=== PATIENT | female | born 1965 | race Caucasian/White ===

== ENCOUNTER 2018-04-27 15:25 | Emergency (ER) | payer BC ==
[2018-04-27] MEDS ORDERED: Albuterol/Ipratropium 3.0-0.5 MG/3 ML Neb Soln NEB ONE (15:44)
--- NOTE | 2018-04-27 15:44 | EDM.PDOC ---
ED HPI GENERAL MEDICAL PROBLEM - General Chief Complaint: General Stated Complaint: cough/congestion Time Seen by Provider: 04/27/18 15:30 Source of Information: Reports: Patient History Limitations: Reports: No Limitations - History of Present Illness INITIAL COMMENTS - FREE TEXT/NARRATIVE: 53 YO WF presents to ER complaining of 5 day history of nonproductive cough, nasal congestion, subjective fever and mild shortness of breath. Pt reports she has been having difficulty sleeping and has a mild generalized headache. Pt denies any nausea/vomiting, no chest pain or abdominal pain. Onset Date: 04/22/18 Duration: Day(s): (5) Location: Reports: Generalized Severity: Mild Improves with: Reports: None Worsens with: Reports: None Associated Symptoms: Reports: No Other Symptoms, Cough, Fever/Chills. Denies: Loss of Appetite, Shortness of Breath headache Pain Score (Numeric/FACES): 8 - Related Data Allergies Allergy/AdvReac Type Severity Reaction Status Date / Time No Known Allergies Allergy Verified 04/27/18 15:33 Home Meds: Home Meds Azithromycin [Zithromax] 250 mg PO DAILY #6 tab 04/27/18 [Rx] ED ROS GENERAL - Review of Systems Review Of Systems: See Below Constitutional: Reports: Fever, Chills, Fatigue HEENT: Reports: Throat Pain Respiratory: Reports: Shortness of Breath Cardiovascular: Reports: No Symptoms Endocrine: Reports: No Symptoms GI/Abdominal: Reports: No Symptoms : Reports: No Symptoms Musculoskeletal: Reports: No Symptoms Skin: Reports: No Symptoms Neurological: Reports: No Symptoms Psychiatric: Reports: No Symptoms Hematologic/Lymphatic: Reports: No Symptoms Immunologic: Reports: No Symptoms ED EXAM, GENERAL - Physical Exam Exam: See Below Exam Limited By: No Limitations General Appearance: Alert, WD/WN, No Apparent Distress Ears: Normal External Exam, Normal Canal, Hearing Grossly Normal, Normal TMs Nose: Clear Rhinorrhea Throat/Mouth: Normal Inspection, Normal Lips, Normal Teeth, Normal Gums, Normal Oropharynx, Normal Voice, No Airway Compromise Head: Atraumatic, Normocephalic Neck: Normal Inspection, Supple, Non-Tender, Full Range of Motion, Lymphadenopathy (L), Lymphadenopathy (R) Respiratory/Chest: No Respiratory Distress, Lungs Clear, Normal Breath Sounds, No Accessory Muscle Use, Chest Non-Tender Cardiovascular: Normal Peripheral Pulses, Regular Rate, Rhythm, No Edema, No Gallop, No JVD, No Murmur, No Rub GI/Abdominal: Normal Bowel Sounds, Soft, Non-Tender, No Organomegaly, No Distention, No Abnormal Bruit, No Mass Back Exam: Normal Inspection, Full Range of Motion, NT Extremities: Normal Inspection, Normal Range of Motion, Non-Tender, Normal Capillary Refill, No Pedal Edema Neurological: Alert, Oriented, CN II-XII Intact, Normal Cognition, Normal Gait, Normal Reflexes, No Motor/Sensory Deficits Psychiatric: Normal Affect, Normal Mood Skin Exam: Warm, Dry, Intact, Normal Color, No Rash Course - Vital Signs Last Recorded V/S: Last Vital Signs Temp 37.1 C 04/27/18 15:34 Pulse 91 04/27/18 15:44 Resp 14 04/27/18 15:34 BP 120/76 04/27/18 15:34 Pulse Ox 100 04/27/18 15:44 - Orders/Labs/Meds Orders: Active Orders 24 hr Category Date Time Status RT Aerosol Therapy [RC] ASDIRECTED Care 04/27/18 15:44 Active CULTURE STREP A CONFIRMATION [] Stat Lab 04/27/18 16:00 Results STREP SCRN A RAPID W CULT CONF [] Stat Lab 04/27/18 16:00 Results Labs: strep- neg influenza- neg Meds: Medications Discontinued Medications Generic Name Dose Route Start Last Admin Trade Name Greg PRN Reason Stop Dose Admin Albuterol/Ipratropium 3 ml 04/27/18 15:44 04/27/18 16:16 Duoneb 3.0-0.5 Mg/3 Ml NEB 04/27/18 15:45 3 ml ONETIME ONE Administration - Radiology Interpretation Free Text/Narrative:: CXR- NAD Departure - Departure Time of Disposition: 17:18 Disposition: Home, Self-Care 01 Condition: Good Clinical Impression: Bronchitis - Discharge Information Prescriptions: Azithromycin [Zithromax] 250 mg PO DAILY #6 tab Referrals: Vanessa Kilpatrick MD [Primary Care Provider] - Forms: ED Department Discharge Additional Instructions: 1. discharge home 2. zithromax-Zpac 3. motrin/tylenol as needed 4. return to ER for worsening symptoms 5. follow up in clinic for recheck next 48-72 hours - My Orders Last 24 Hours: My Active Orders 04/27/18 15:44 RT Aerosol Therapy [RC] ASDIRECTED 04/27/18 16:00 CULTURE STREP A CONFIRMATION [RM] Stat STREP SCRN A RAPID W CULT CONF [RM] Stat - Assessment/Plan Last 24 Hours: My Active Orders 04/27/18 15:44 RT Aerosol Therapy [RC] ASDIRECTED 04/27/18 16:00 CULTURE STREP A CONFIRMATION [RM] Stat STREP SCRN A RAPID W CULT CONF [] Stat Assessment:: 1. acute bronchitis Plan: 1. discharge home 2. zithromax-Zpac 3. motrin/tylenol as needed 4. return to ER for worsening symptoms 5. follow up in clinic for recheck next 48-72 hours
--- NOTE | 2018-04-27 16:15 | CR ---
[id number] RAD/RAD Chest PA And Lateral EXAM: RAD Chest PA And Lateral INDICATION: SHORTNESS OF BREATH. COMPARISON: None. DISCUSSION: Cardiomediastinal silhouette is normal in size and contour. No infiltrate, effusion, pneumothorax, or edema. IMPRESSION: Negative examination of the chest. Leon Torres MD 04/27/18 [id number] Thank you for allowing us to participate in the care of your patient.
== END 2018-04-27 17:33 | disposition home or self-care (01) ==
LOC: KA.ED 15:25
DX: J20.9 Acute bronchitis, unspecified (principal)
CPT/HCPCS: 71046; 87081; 87430; 87804; 94640; 99284; J7620-GY

== ENCOUNTER 2020-03-27 16:40 | Emergency (ER) | payer BC ==
--- NOTE | 2020-03-27 16:55 | EDM.PDOC ---
ED HPI GENERAL MEDICAL PROBLEM - General Chief Complaint: General Stated Complaint: FELL AND HIT HER HEAD Time Seen by Provider: 03/27/20 16:55 Source of Information: Reports: Patient - History of Present Illness INITIAL COMMENTS - FREE TEXT/NARRATIVE: Simran, 54-year-old female, when leaving [place] today, walking on a slant slipped on snowy icy surface causing her to fall onto her left hip left elbow and shoulder. She also bumped her head but denies loss of consciousness. She states she heard a pop when this occurred, not certain as to where it came from. She was able to get up and her insisted that she come for evaluation. She has had persisting pain to the lateral left hip as well as elbow and shoulder region with some limited range of motion secondary of her pain. She denies any recent COVID-19 pandemic related concerns or exposures. Onset: Today, Sudden Onset Date: 03/27/20 Onset Time: 16:30 Duration: Minutes: Location: Reports: Pelvis, Upper Extremity, Left Left Shoulder Pain Score (Numeric/FACES): 7 Lower Back Pain Score (Numeric/FACES): 7 - Related Data Allergies Allergy/AdvReac Type Severity Reaction Status Date / Time No Known Allergies Allergy Verified 03/27/20 16:46 Home Meds: Home Meds ALPRAZolam [Alprazolam] 1 mg PO DAILY PRN 03/27/20 [History] Cyclobenzaprine [Flexeril] 10 mg PO TID PRN 03/27/20 [History] DULoxetine [Cymbalta] 120 mg PO DAILY 03/27/20 [History] Gabapentin [Neurontin] 900 mg PO BEDTIME 03/27/20 [History] Hydrocodone/Acetaminophen [Hydrocodone-Acetamin 5-325 mg] 1 each PO PRN 03/27/20 [History] Rosuvastatin [Crestor] 5 mg PO DAILY 03/27/20 [History] Sertraline [Zoloft] 200 mg PO DAILY 03/27/20 [History] glipiZIDE [Glucotrol] 5 mg PO BIDMEALS 03/27/20 [History] lisinopriL [Lisinopril] 20 mg PO DAILY 03/27/20 [History] metFORMIN [Glucophage] 1,000 mg PO BIDMEALS 03/27/20 [History] Past Medical History Gastrointestinal History: Reports: GERD PATIENT ACCESS COORDINATOR History: Reports: , Other (See Below) Other PATIENT ACCESS COORDINATOR History: 1990 Neurological History: Reports: Migraines Psychiatric History: Reports: Anxiety, Depression Endocrine/Metabolic History: Reports: Diabetes, Type II, Obesity/BMI 30+ - Infectious Disease History Infectious Disease History: Reports: Chicken Pox, Measles - Past Surgical History GI Surgical History: Reports: None, Hernia Repair/Other Endocrine Surgical History: Reports: None Neurological Surgical History: Reports: None Social & Family History - Family History Family Medical History: No Pertinent Family History - Caffeine Use Caffeine Use: Reports: Coffee ED ROS GENERAL - Review of Systems Review Of Systems: Comprehensive ROS is negative, except as noted in HPI. ED EXAM, GENERAL - Physical Exam Exam: See Below Free Text/Narrative:: Alert oriented, in no distress. HEENT is negative discharge or deformity. There is no tenderness to palpation. PERRLA with no icterus no injection, EOM intact. Neck is soft supple no lymphadenopathy, no spinal tenderness or radiculopathy noted. There is tenderness to the left shoulder girdle as well as left elbow to palpation. I do not appreciate any crepitus to mild motion. Radial pulses present capillary refill is intact. There is no tenderness to the right shoulder chest wall or upper extremity. Thorax is clear with no wheezes nor crackles. Cardiac is regular Tenderness to the left hip at the greater trochanter region to palpation and slightly changing to motion. She is able to move the distal extremities with no discomfort. Course - Vital Signs Last Recorded V/S: Last Vital Signs Temp 97.1 F 03/27/20 16:40 Pulse 96 03/27/20 16:40 Resp 16 03/27/20 16:40 BP 135/85 03/27/20 16:40 Pulse Ox 96 03/27/20 16:40 - Orders/Labs/Meds Meds: Medications Discontinued Medications Generic Name Dose Route Start Last Admin Trade Name Freq PRN Reason Stop Dose Admin Ketorolac Tromethamine 60 mg 03/27/20 17:20 Toradol IM 03/27/20 17:21 ONETIME ONE - Radiology Interpretation Free Text/Narrative:: No evidence of fracture or dislocation noted on any of the films. Area of the distal humerus consistent with enthesopathy. Which correlates with her area of complaint from her previous epicondylitis and muscular pains. - Re-Assessments/Exams Free Text/Narrative Re-Assessment/Exam: 03/27/20 18:02 Improvement in her pain with the ketorolac injection awaiting readings and discharge. Departure - Departure Time of Disposition: 17:54 Disposition: Home, Self-Care 01 Condition: Good Clinical Impression: Shoulder pain, left, Elbow pain, left, Fall due to ice or snow, Hip pain, left - Discharge Information *PRESCRIPTION DRUG MONITORING PROGRAM REVIEWED*: Not Applicable *COPY OF PRESCRIPTION DRUG MONITORING REPORT IN PATIENT ABILIO: Not Applicable Instructions: How to Use Cold Therapy, [id number], Shoulder Pain, [id number], Joint Pain, [id number] Referrals: Avril Rojas PA-C [Primary Care Provider] - Forms: ED Department Discharge Additional Instructions: You may use heat, or ice to the affected areas to help with the contusion. The next time you are in the clinic to see Avril about your elbow, mention the findings on this x-ray to her. This may be beneficial if you have to see physical therapy for treatment of the elbow. Continue all your medications as directed and limit your activity this evening. Follow-up at the clinic if not improving or if getting worse over the course of the next week. Aches and pains will develop secondary of the fall, but should not come on suddenly or severely. Issues like that should be checked at your convenience. Sepsis Event Note (ED) - Evaluation Sepsis Screening Result: No Definite Risk - Focused Exam Vital Signs: Vital Signs Temp Pulse Resp BP Pulse Ox 03/27/20 16:40 97.1 F 96 16 135/85 96 - Problem List & Annotations (1) Shoulder pain, left SNOMED Code(s): 82183316, 14042451 Code(s): M25.512 - PAIN IN LEFT SHOULDER Status: Acute Priority: High Current Visit: Yes Qualifiers: Chronicity: acute Qualified Code(s): M25.512 - Pain in left shoulder (2) Elbow pain, left SNOMED Code(s): 58423705 Code(s): M25.522 - PAIN IN LEFT ELBOW Status: Acute Priority: High Current Visit: Yes (3) Fall due to ice or snow SNOMED Code(s): 371567814 Code(s): W00.9XXA - UNSPECIFIED FALL DUE TO ICE AND SNOW, INITIAL ENCOUNTER Status: Acute Priority: High Current Visit: Yes Qualifiers: Encounter type: initial encounter Qualified Code(s): W00.9XXA - Unspecified fall due to ice and snow, initial encounter (4) Hip pain, left SNOMED Code(s): 01302744 Code(s): M25.552 - PAIN IN LEFT HIP Status: Acute Priority: High Current Visit: Yes - Problem List Review Problem List Initiated/Reviewed/Updated: Yes - Assessment/Plan Plan: You may use heat, or ice to the affected areas to help with the contusion. The next time you are in the clinic to see Avril about your elbow, mention the findings on this x-ray to her. This may be beneficial if you have to see physical therapy for treatment of the elbow. Continue all your medications as directed and limit your activity this evening. Follow-up at the clinic if not improving or if getting worse over the course of the next week. Aches and pains will develop secondary of the fall, but should not come on suddenly or severely. Issues like that should be checked at your convenience.
[2020-03-27] MEDS: Ketorolac 60 MG/2 ML SDV IM ONE (17:26)
--- NOTE | 2020-03-27 17:35 | CR ---
[id number] RAD/RAD Shoulder Left 2V Min Exam: RAD Shoulder Left 2V Min Indication:FALL WITH PAIN. Comparison: No prior imaging for comparison. Discussion/Impression: No acute fracture or dislocation. Glenohumeral osteoarthritis. Leon Torres MD 03/27/20 [id number] Thank you for allowing us to participate in the care of your patient.
--- NOTE | 2020-03-27 17:36 | CR ---
[id number] RAD/RAD Elbow Left 2V Exam: RAD Elbow Left 2V Indication:FALL, PAIN. Comparison: No prior imaging for comparison. Discussion/Impression: Elbow joint effusion. No visible fracture. Elbow joint effusions can be seen with radiographically occult supracondylar humerus fractures. Bones remain in normal alignment. Joint spaces are well-preserved. 9 mm bony exostosis arising from the cortex of the distal humeral metaphysis along its ulnar aspect. Finding is nonspecific but commonly seen as enthesopathy. No suspicious radiographic features. Leon Trores MD 03/27/20 [id number] Thank you for allowing us to participate in the care of your patient.
--- NOTE | 2020-03-27 17:37 | CR ---
[id number] RAD/RAD Pelvis W Left Lateral Hip Exam: RAD Pelvis W Left Lateral Hip Indication:FALL WITH PAIN TO MOTION/PALPATION. Comparison: No prior imaging for comparison. Discussion/Impression: Bones in normal alignment. No fracture, AVN, or erosive changes. Bilateral os acetabula. Joint spaces are well-preserved. Bone mineralization is normal. Leon Torres MD 03/27/20 [id number] Thank you for allowing us to participate in the care of your patient.
== END 2020-03-27 18:00 | disposition home or self-care (01) ==
LOC: KA.ED 16:40
DX: M25.512 Pain in left shoulder (principal); M25.522 Pain in left elbow; M25.552 Pain in left hip; F41.9 Anxiety disorder, unspecified; F32.9 Major depressive disorder, single episode, unspecified; E11.9 Type 2 diabetes mellitus without complications; G43.909 Migraine, unspecified, not intractable, without status migrainosus; E66.9 Obesity, unspecified; Z68.41 Body mass index [BMI] 40.0-44.9, adult; Z79.899 Other long term (current) drug therapy; W00.0XXA Fall on same level due to ice and snow, initial encounter; Y93.01 Activity, walking, marching and hiking
CPT/HCPCS: 73030-LT; 73070-LT; 96372; 99283; 99283-25; J1885

== ENCOUNTER 2022-09-25 16:29 | Emergency (ER) | payer MEDICAID ==
[2022-09-25 16:35] VITALS: BP 112/71; PULSE 80
== END 2022-09-25 17:10 | disposition home or self-care (01) ==
LOC: KA.ED 16:29
DX: G54.0 Brachial plexus disorders (principal); E78.00 Pure hypercholesterolemia, unspecified; I10 Essential (primary) hypertension; E11.9 Type 2 diabetes mellitus without complications; E66.9 Obesity, unspecified; Z68.25 Body mass index [BMI] 25.0-25.9, adult; Z79.899 Other long term (current) drug therapy; Z98.890 Other specified postprocedural states
CPT/HCPCS: 71045; 99283; 99284

== ENCOUNTER 2023-02-16 11:16 | Emergency (ER) | payer MEDICAID ==
[2023-02-16] MEDS ORDERED: Sodium Chloride 0.9% 1,000 ML IV ONE (11:27)
[2023-02-16] MEDS ORDERED: Ketorolac 30 MG/ML SDV IVPUSH ONE (11:27)
[2023-02-16] MEDS ORDERED: diphenhydrAMINE 50 MG/ML SDV IVPUSH ONE (11:28)
[2023-02-16] MEDS ORDERED: Ondansetron 4 MG/2 ML SDV IVPUSH ONE (11:30)
== END 2023-02-16 12:50 | disposition home or self-care (01) ==
LOC: KA.ED 11:16
DX: G44.209 Tension-type headache, unspecified, not intractable (principal); I10 Essential (primary) hypertension; K21.9 Gastro-esophageal reflux disease without esophagitis; E78.00 Pure hypercholesterolemia, unspecified; E11.9 Type 2 diabetes mellitus without complications; E66.9 Obesity, unspecified; Z79.899 Other long term (current) drug therapy
CPT/HCPCS: 96361; 96374; 96375; 99283-25; 99284; J1200; J1885; J2405; J7030

== ENCOUNTER 2023-03-16 17:35 | Emergency (ER) | payer MEDICAID, OTHER ==
[2023-03-16] MEDS ORDERED: Acetaminophen 500 MG Tab PO ONE (18:34)
== END 2023-03-16 19:35 | disposition home or self-care (01) ==
LOC: KA.ED 17:35
DX: S00.83XA Contusion of other part of head, initial encounter (principal); S80.02XA Contusion of left knee, initial encounter; S09.90XA Unspecified injury of head, initial encounter; E11.9 Type 2 diabetes mellitus without complications; E66.9 Obesity, unspecified; E78.00 Pure hypercholesterolemia, unspecified; I10 Essential (primary) hypertension; W18.30XA Fall on same level, unspecified, initial encounter
CPT/HCPCS: 70450; 73562-LT; 99284; A9270-GY

== ENCOUNTER 2023-05-12 07:59 | Day surgery (SDC) | payer BC, OTHER ==
[2023-05-12] MEDS ORDERED: Sodium Chloride 0.9% 10 ML Syringe FLUSH PRN (08:00)
[2023-05-12] MEDS ORDERED: Bupivacaine 0.5% 30 ML SDV ONE (08:42)
[2023-05-12] MEDS ORDERED: Bacitracin/Neomycin/Polymyxin B Oint 0.9 GM U/D Packet ONE (08:42)
[2023-05-12] MEDS: Lactated Ringers 1,000 ML IV SCH (08:46)
[2023-05-12] MEDS ORDERED: Lidocaine 0.5% 50 ML SDV ONE (08:57)
[2023-05-12] MEDS ORDERED: Midazolam 1 MG/ML 2 ML SDV ONE (08:57)
[2023-05-12] MEDS ORDERED: Propofol 200 MG/20 ML SDV ONE (08:57)
[2023-05-12] MEDS: Bacitracin/Neomycin/Polymyxin B Oint 0.9 GM U/D Packet TOP ONE (09:19)
[2023-05-12] MEDS: Bupivacaine 0.5% 30 ML SDV INFILT ONE (09:19)
== END 2023-05-12 12:00 | disposition home or self-care (01) ==
LOC: KA.SDS 07:59
PROVIDERS: ATTEND Surgery
DX: G56.01 Carpal tunnel syndrome, right upper limb (principal); F32.A Depression, unspecified; F41.9 Anxiety disorder, unspecified; G43.909 Migraine, unspecified, not intractable, without status migrainosus; Z79.899 Other long term (current) drug therapy
CPT/HCPCS: 01810; J0665; J2250; J2704; J3490; J7120

== ENCOUNTER 2024-02-13 09:34 | Emergency (ER) | payer BC ==
[2024-02-13 09:57] LABS: BASOPHILS ABSOLUTE AUTO 0.01 10^3/uL (0.00-0.10); BASOPHILS PERCENT AUTO 0.2 % (0.0-1.0); EOSINOPHILS ABSOLUTE AUTO 0.25 10^3/uL (0.10-0.30); EOSINOPHILS PERCENT AUTO 4.3 % (1.0-3.0); HEMATOCRIT 34.5 % (37.0-47.0); HEMOGLOBIN 11.3 g/dL (12.0-16.0); LYMPHOCYTES PERCENT AUTO 22.5 % (20.0-40.0); MEAN CORPUSCULAR HGB CONC 32.8 g/dL (32.0-36.0); MEAN CORPUSCULAR VOLUME 103.9 fL (82.0-92.0); MEAN PLATELET VOLUME 10.2 fL (7.4-10.4); MONOCYTES PERCENT AUTO 10.4 % (2.0-8.0); NEUTROPHILS ABSOLUTE AUTO 3.61 10^3/uL (2.50-7.00); NEUTROPHILS PERCENT AUTO 62.6 % (50.0-70.0); PLATELET COUNT,PLT 99 10^3/uL (150-400); RED BLOOD CELL COUNT 3.32 10^6/uL (3.80-5.50); RED CELL DISTRIBUTION WIDTH 14.2 % (11.5-14.5); WHITE BLOOD CELL COUNT,WBC 5.77 10^3/uL (5.00-10.00)
[2024-02-13 10:15] LABS: ANION GAP 9.3 mmol/L (5-15); CARBON DIOXIDE,CO2 29.9 mmol/L (21.0-32.0); CREATININE 0.61 mg/dL (0.51-1.17); EST CRCL DRUG DOSING (CG) 115.1 mL/min; POTASSIUM,K 4.2 mmol/L (3.5-5.1)
[2024-02-13] MEDS: Acetaminophen 500 MG Tab PO ONE (10:20)
[2024-02-13 10:25] LABS: CALCIUM 7.7 mg/dL (8.7-10.3)
== END 2024-02-13 11:06 | disposition home or self-care (01) ==
LOC: KA.ED 09:34
DX: J06.9 Acute upper respiratory infection, unspecified (principal); B97.89 Other viral agents as the cause of diseases classified elsewhere; I10 Essential (primary) hypertension; E78.00 Pure hypercholesterolemia, unspecified; E11.9 Type 2 diabetes mellitus without complications; E66.9 Obesity, unspecified; Z79.891 Long term (current) use of opiate analgesic; Z79.899 Other long term (current) drug therapy; Z68.22 Body mass index [BMI] 22.0-22.9, adult
CPT/HCPCS: 36415; 71046; 80048; 84484; 85025; 93005; 93010; 99284; 99285; A9270-GY

== ENCOUNTER 2024-07-25 13:14 | Emergency (ER) | payer SELFPAY ==
[2024-07-25] MEDS: Sodium Chloride 0.9% 1,000 ML IV ONE (13:48)
[2024-07-25 13:50] LABS: BASOPHILS ABSOLUTE AUTO 0.02 10^3/uL (0.00-0.10); BASOPHILS PERCENT AUTO 0.5 % (0.0-1.0); EOSINOPHILS ABSOLUTE AUTO 0.28 10^3/uL (0.10-0.30); EOSINOPHILS PERCENT AUTO 6.8 % (1.0-3.0); HEMATOCRIT 38.8 % (37.0-47.0); HEMOGLOBIN 12.8 g/dL (12.0-16.0); LYMPHOCYTES ABSOLUTE AUTO 1.14 10^3/uL (1.00-4.00); LYMPHOCYTES PERCENT AUTO 27.9 % (20.0-40.0); MEAN CORPUSCULAR HEMOGLOBIN 34.6 pg (27.0-31.0); MEAN CORPUSCULAR VOLUME 104.9 fL (82.0-92.0); MONOCYTES ABSOLUTE AUTO 0.24 10^3/uL (0.10-0.80); MONOCYTES PERCENT AUTO 5.9 % (2.0-8.0); NEUTROPHILS ABSOLUTE AUTO 2.41 10^3/uL (2.50-7.00); NEUTROPHILS PERCENT AUTO 58.9 % (50.0-70.0); PLATELET COUNT,PLT 119 10^3/uL (150-400); RED CELL DISTRIBUTION WIDTH 13.1 % (11.5-14.5); WHITE BLOOD CELL COUNT,WBC 4.09 10^3/uL (5.00-10.00)
[2024-07-25] MEDS: diphenhydrAMINE 50 MG/ML SDV IVPUSH ONE (13:50)
[2024-07-25] MEDS: Ketorolac 30 MG/ML SDV IVPUSH ONE (13:52)
[2024-07-25] MEDS: Ondansetron 4 MG/2 ML SDV IVPUSH ONE (13:55)
[2024-07-25 14:04] LABS: ALANINE AMINOTRANSFERASE,ALT 25 U/L (14-63); ALBUMIN 2.93 g/dL (3.40-5.00); ALKALINE PHOSPHATASE 100 U/L (46-116); ANION GAP 10.3 mmol/L (5-15); ASPARTATE AMNIOTRANSFERASE,AST 28 U/L (15-37); BILIRUBIN TOTAL 0.5 mg/dL (0.2-1.0); BLOOD UREA NITROGEN,BUN 14 mg/dL (7-18); CALCIUM 8.5 mg/dL (8.7-10.3); CARBON DIOXIDE,CO2 27.8 mmol/L (21.0-32.0); CHLORIDE,CL 107 mmol/L (98-107); CREATININE 0.61 mg/dL (0.51-1.17); EST CRCL DRUG DOSING (CG) 113.73 mL/min; GLUCOSE RANDOM 85 mg/dL (70-140); POTASSIUM,K 4.1 mmol/L (3.5-5.1); SODIUM,NA 141 mmol/L (136-145)
[2024-07-25 14:06] LABS: C-REACTIVE PROTEIN < 0.50 mg/dL (0.00-0.50); ESTIMATED GFR 104 mL/min (>=60)
[2024-07-25] MEDS: Metoclopramide 10 MG/2 ML SDV IVPUSH ONE (14:59)
== END 2024-07-25 15:38 | disposition home or self-care (01) ==
LOC: KA.ED 13:14
DX: G43.909 Migraine, unspecified, not intractable, without status migrainosus (principal); S31.829A Unspecified open wound of left buttock, initial encounter; E78.00 Pure hypercholesterolemia, unspecified; I10 Essential (primary) hypertension; E11.9 Type 2 diabetes mellitus without complications; Z79.899 Other long term (current) drug therapy; X58.XXXA Exposure to other specified factors, initial encounter; Y93.89 Activity, other specified
CPT/HCPCS: 36415; 80053; 83605; 85025; 86140; 96374; 96375; 99283; 99283-25; J1200; J1885; J2405; J2765; J7030